=== PATIENT | female | born 1945 | race Two or more races ===

== ENCOUNTER 2019-10-21 05:48 | Inpatient (IN) | payer OTHER, MEDICAID ==
[~2019-10-21] VITALS: Ht 157.5 cm; Wt 98.4 kg
[2019-10-21 06:19] LABS: BASOPHILS % 0.5 % (0.0-2.0); EOSINOPHILS % 4.5 % (0.0-5.0); HEMATOCRIT. 35.5 % (36.0-48.0); HEMOGLOBIN. 11.7 g/dL (12.0-16.0); LYMPHOCYTES % 33.6 % (20.0-50.0); MEAN CORPUSCULAR HEMOGLOBIN 26.6 pg (28.0-32.0); MEAN CORPUSCULAR VOLUME 80.9 fL (81.0-99.0); MEAN PLATELET VOLUME 8.7 fl (7.4-10.4); MONOCYTES % 5.5 % (2.0-8.0); NEUTROPHILS % 55.9 % (40.0-76.0); PLATELET 223 x1000/uL (130-400); RED BLOOD CELL COUNT 4.39 mill/uL (4.2-5.4)
[2019-10-21 06:27] LABS: CHLORIDE 110 mEq/L (98-107)
[2019-10-21] MEDS ORDERED: FUROSEMIDE 40MG/4ML VIAL IV ONE (06:45)
[2019-10-21] MEDS ORDERED: NITROGLYCERIN OINT 1GM/INCH UDPKT TD ONE (06:45)
[2019-10-21] MEDS ORDERED: ASPIRIN 325MG EC TABLET PO NR (07:15)
[2019-10-21] MEDS ORDERED: CLONIDINE 0.1MG TABLET PO PRN (11:45)
[2019-10-21] MEDS ORDERED: ACETAMINOPHEN 650MG SUPP PR PRN (11:45)
[2019-10-21] MEDS ORDERED: IPRATROPIUM/ALBUTEROL 0.5-3(2.5)MG/3ML NEB NEB PRN (11:45)
[2019-10-21] MEDS ORDERED: DEXTROSE 50% WATER 50ML SYRINGE IV PRN (11:45)
[2019-10-21] MEDS ORDERED: GUAIFENESIN 200MG/10ML SUGAR FREE UDC PO PRN (11:45)
[2019-10-21] MEDS ORDERED: LORAZEPAM 0.5MG TABLET PO PRN (11:45)
[2019-10-21] MEDS ORDERED: HYDROCODONE/ACETAMINOPHEN 5/325MG TABLET PO PRN (11:45)
[2019-10-21] MEDS ORDERED: MAGNESIUM/ALUMINUM HYDROXIDE/SIMETHICONE 30ML UDC PO PRN (11:45)
[2019-10-21] MEDS ORDERED: ACETAMINOPHEN 325MG TABLET PO PRN (11:45)
[2019-10-21] MEDS ORDERED: HYDRALAZINE 20MG/ML VIAL IV PRN (11:45)
[2019-10-21] MEDS ORDERED: DIPHENHYDRAMINE 50MG/ML VIAL IV PRN (11:45)
[2019-10-21] MEDS ORDERED: ONDANSETRON HCL 4MG/2ML INJ IV PRN (11:45)
[2019-10-21] MEDS ORDERED: DOCUSATE SODIUM 100MG CAPSULE PO PRN (11:45)
[2019-10-21] MEDS ORDERED: NA PHOS,M-B/NA PHOS,DI-BA ENEMA 118ML PR PRN (11:45)
[2019-10-21] MEDS ORDERED: HYDRALAZINE 20MG/ML VIAL IV SCH (12:15)
[2019-10-21] MEDS: ASPIRIN 81MG EC TABLET PO SCH (12:19)
[2019-10-21] MEDS: FUROSEMIDE 40MG/4ML VIAL IV SCH (12:52)
[2019-10-21 12:56] LABS: BG BASE EXCESS -1.2 mmol/L (-2.0-2.0); BG BILEVEL POS AIRWAY PRESSURE 15/5; BG CARBOXYHEMOGLOBIN 0.3 % (0.5-1.5); BG DEOXYHEMOGLOBIN 0.6 % (0.0-5.0); BG FRACTION INSPIRED OXYGEN 100; BG HCO3 ACT 24.2 mmol/L (22.0-26.0); BG METHEMOGLOBIN 0.3 % (0.0-1.5); BG OXYGEN SATURATION 99.4 % (92.0-98.5); BG OXYHEMOGLOBIN 98.8 % (94.0-97.0); BG PCO2 43.5 mmHg (35.0-45.0); BG PH 7.364 (7.350-7.450); BG PO2 408.9 mmHg (75.0-100.0); BG SAMPLE SITE RIGHT RADIAL; BG TOTAL HEMOGLOBIN 10.8 g/dL (12.0-18.0); BG VENT MODE MASK - BIPAP; BG VENT RATE 14 set
[2019-10-21] MEDS: AMLODIPINE 5MG TABLET PO SCH (12:57)
[2019-10-21] MEDS: INSULIN LISPRO 100 UNITS/ML SUBCUT SCH ×3 (12:57→21:00)
[2019-10-21] MEDS: BLOOD SUGAR DIAGNOSTIC STRIP TEST SCH ×4 (12:57→21:00)
[2019-10-21] MEDS ORDERED: CEFTRIAXONE 1 G PREMIX 50 ML IV SCH (13:00)
[2019-10-21] MEDS ORDERED: AZITHROMYCIN 500 MG in DEXT 5% WATER 250 ML IV SCH (13:00)
[2019-10-21] MEDS ORDERED: NITROGLYCERIN OINT 1GM/INCH UDPKT TD NR (18:32)
[2019-10-21] MEDS ORDERED: CARVEDILOL 6.25 MG TABLET PO SCH (18:33)
[2019-10-21 21:49] LABS: CREATINE KINASE MB FRACTION 9.1 ng/mL (0.5-3.6)
[2019-10-21] MEDS ORDERED: ASPIRIN 81MG TABLET PO SCH (23:00)
[2019-10-21 23:56] LABS: PROTHROMBIN TIME 10.8 sec (9.6-11.0)
[2019-10-22] VITALS (7 sets, daily range): BP systolic 124–165; BP diastolic 45–70
[2019-10-22] MEDS ORDERED: IPRATROPIUM/ALBUTEROL 0.5-3(2.5)MG/3ML NEB NEB SCH
[2019-10-22 00:04] LABS: CREATINE KINASE MB FRACTION 7.7 ng/mL (0.5-3.6)
[2019-10-22] MEDS: NITROGLYCERIN OINT 1GM/INCH UDPKT TD SCH ×4 (00:45→20:23)
[2019-10-22] MEDS: FAMOTIDINE 20MG TABLET PO SCH ×2 (00:45→20:23)
[2019-10-22] MEDS ORDERED: ENOXAPARIN 100MG/ML SYR SUBCUT SCH (01:00)
[2019-10-22] MEDS: ENOXAPARIN 100MG/ML SYR SUBCUT SCH ×2 (02:51→16:55)
[2019-10-22] MEDS ORDERED: INSU100V3 SUBCUT ×2 (03:40)
[2019-10-22] MEDS ORDERED: NPH,100V SQ ×2 (03:40)
[2019-10-22] MEDS: BLOOD SUGAR DIAGNOSTIC STRIP TEST SCH ×4 (06:28→20:24)
[2019-10-22 08:02] LABS: CLARITY URINE CLOUDY (CLEAR); COLOR URINE YELLOW (YELLOW); KETONES URINE NEGATIVE (NEGATIVE); LEUKOCYTE ESTERASE URINE 2+ (NEGATIVE); NITRITE URINE NEGATIVE (NEGATIVE); OCCULT BLOOD URINE NEGATIVE (NEGATIVE); PROTEIN URINE 3+ (NEGATIVE); SPECIFIC GRAVITY URINE 1.024 (1.005-1.030)
[2019-10-22] MEDS ORDERED: LOSARTAN POTASSIUM 25 MG TABLET PO SCH (09:00)
[2019-10-22] MEDS: INSULIN LISPRO 100 UNITS/ML SUBCUT SCH ×4 (09:42→20:43)
[2019-10-22] MEDS: FUROSEMIDE 40MG/4ML VIAL IV SCH (09:45)
[2019-10-22] MEDS: CARVEDILOL 6.25 MG TABLET PO SCH ×2 (09:46→20:23)
[2019-10-22] MEDS: AMLODIPINE 5MG TABLET PO SCH (09:47)
[2019-10-22] MEDS: ASPIRIN 81MG EC TABLET PO SCH (09:47)
[2019-10-22 10:21] LABS: BASOPHILS % 1.1 % (0.0-2.0); EOSINOPHILS % 4.4 % (0.0-5.0); HEMOGLOBIN. 10.6 g/dL (12.0-16.0); LYMPHOCYTES % 22.4 % (20.0-50.0); MEAN CORPUSCULAR HEMOGLOBIN 26.8 pg (28.0-32.0); MEAN CORPUSCULAR VOLUME 80.7 fL (81.0-99.0); MEAN PLATELET VOLUME 9.2 fl (7.4-10.4); MONOCYTES % 6.7 % (2.0-8.0); NEUTROPHILS % 65.4 % (40.0-76.0); PLATELET 219 x1000/uL (130-400); RED BLOOD CELL COUNT 3.97 mill/uL (4.2-5.4); RED CELL DISTRIBUTION WIDTH 15.9 % (11.6-14.6)
[2019-10-22 10:28] LABS: PROTHROMBIN TIME 11.2 sec (9.6-11.0)
[2019-10-22 10:43] LABS: CHLORIDE 108 mEq/L (98-107)
[2019-10-22 10:57] LABS: LDL CHOLESTEROL 199 mg/dL (5-100)
[2019-10-22 10:58] LABS: HDL CHOLESTEROL 30 mg/dL (40-59)
[2019-10-22 10:59] LABS: T4 FREE 1.38 ng/dL (0.76-1.46)
[2019-10-22 11:37] LABS: *BARBITURATES SCREEN URINE NEGATIVE (NEGATIVE); *BENZODIAZEPINES SCREEN URINE NEGATIVE (NEGATIVE); *COCAINE SCREEN URINE NEGATIVE (NEGATIVE); OPIATES URINE SCREEN NEGATIVE (NEGATIVE)
[2019-10-22 11:38] LABS: CANNABINOID URINE SCREEN NEGATIVE (NEGATIVE)
[2019-10-22 11:47] LABS: METHADONE URINE SCREEN NEGATIVE (NEGATIVE)
[2019-10-22 11:49] LABS: *AMPHETAMINES SCREEN URINE NEGATIVE (NEGATIVE)
[2019-10-22 11:59] LABS: PHENCYCLIDINE URINE SCREEN NEGATIVE (NEGATIVE)
[2019-10-22] MEDS ORDERED: CEFTRIAXONE 1 G PREMIX 50 ML IV SCH (13:00)
[2019-10-22] MEDS ORDERED: AZITHROMYCIN 500 MG in DEXT 5% WATER 250 ML IV SCH (15:00)
[2019-10-22] MEDS: CEFTRIAXONE 1 G PREMIX 50 ML IV SCH (16:46)
[2019-10-22] MEDS: ATORVASTATIN CALCIUM 20MG TABLET PO SCH (20:23)
[2019-10-22] MEDS: LOSARTAN POTASSIUM 25 MG TABLET PO SCH (20:23)
[2019-10-23] VITALS (7 sets, daily range): BP systolic 123–174; BP diastolic 45–68
[2019-10-23] MEDS: ENOXAPARIN 100MG/ML SYR SUBCUT SCH ×2 (03:00→14:01)
[2019-10-23] MEDS: BLOOD SUGAR DIAGNOSTIC STRIP TEST SCH ×4 (06:02→20:54)
[2019-10-23] MEDS: NITROGLYCERIN OINT 1GM/INCH UDPKT TD SCH ×3 (06:02→20:59)
[2019-10-23] MEDS: CARVEDILOL 6.25 MG TABLET PO SCH ×3 (09:00→20:54)
[2019-10-23] MEDS: INSULIN LISPRO 100 UNITS/ML SUBCUT SCH ×4 (09:09→21:35)
[2019-10-23] MEDS: FUROSEMIDE 40MG/4ML VIAL IV SCH (09:09)
[2019-10-23] MEDS: ASPIRIN 81MG EC TABLET PO SCH (09:10)
[2019-10-23] MEDS: LOSARTAN POTASSIUM 25 MG TABLET PO SCH ×2 (09:11→20:54)
[2019-10-23] MEDS: AMLODIPINE 5MG TABLET PO SCH (09:11)
[2019-10-23 11:23] LABS: BASOPHILS % 0.8 % (0.0-2.0); HEMATOCRIT. 32.5 % (36.0-48.0); HEMOGLOBIN. 10.7 g/dL (12.0-16.0); LYMPHOCYTES % 23.2 % (20.0-50.0); MEAN CORPUSCULAR HEMOGLOBIN 26.7 pg (28.0-32.0); MEAN CORPUSCULAR VOLUME 80.7 fL (81.0-99.0); MEAN PLATELET VOLUME 8.6 fl (7.4-10.4); MONOCYTES % 6.2 % (2.0-8.0); NEUTROPHILS % 64.8 % (40.0-76.0); PLATELET 216 x1000/uL (130-400); RED BLOOD CELL COUNT 4.03 mill/uL (4.2-5.4); RED CELL DISTRIBUTION WIDTH 15.6 % (11.6-14.6)
[2019-10-23 11:50] LABS: BG BASE EXCESS 1.4 mmol/L (-2.0-2.0); BG CARBOXYHEMOGLOBIN 0.3 % (0.5-1.5); BG DEOXYHEMOGLOBIN 7.1 % (0.0-5.0); BG HCO3 ACT 26.6 mmol/L (22.0-26.0); BG METHEMOGLOBIN 0.3 % (0.0-1.5); BG OXYGEN SATURATION 92.9 % (92.0-98.5); BG OXYHEMOGLOBIN 92.3 % (94.0-97.0); BG PCO2 44.2 mmHg (35.0-45.0); BG PH 7.397 (7.350-7.450); BG PO2 65.4 mmHg (75.0-100.0); BG SAMPLE SITE RIGHT RADIAL; BG TOTAL HEMOGLOBIN 11.3 g/dL (12.0-18.0); BG VENT MODE ROOM AIR
[2019-10-23] MEDS: CEFTRIAXONE 1 G PREMIX 50 ML IV SCH (16:21)
[2019-10-23] MEDS: ALBUTEROL 6.7GM HFA INHALER ORI SCH ×2 (18:00→20:59)
[2019-10-23] MEDS: ATORVASTATIN CALCIUM 20MG TABLET PO SCH (20:54)
[2019-10-23] MEDS: AZITHROMYCIN 500 MG in DEXT 5% WATER 250 ML IV SCH (21:31)
[2019-10-23] MEDS: FAMOTIDINE 20MG TABLET PO SCH (21:34)
[2019-10-24] VITALS: BP 146/57
[2019-10-24 04:00] VITALS: BP 117/57
[2019-10-24] MEDS: NITROGLYCERIN OINT 1GM/INCH UDPKT TD SCH ×3 (05:41→23:29)
[2019-10-24] MEDS: ALBUTEROL 6.7GM HFA INHALER ORI SCH ×4 (05:41→23:30)
[2019-10-24] MEDS: BLOOD SUGAR DIAGNOSTIC STRIP TEST SCH ×4 (05:42→21:15)
[2019-10-24] MEDS: ENOXAPARIN 100MG/ML SYR SUBCUT SCH ×2 (05:42→18:13)
[2019-10-24 08:00] VITALS: BP 128/53
[2019-10-24] MEDS: CARVEDILOL 6.25 MG TABLET PO SCH ×2 (09:00→21:00)
[2019-10-24] MEDS ORDERED: AMLODIPINE 5MG TABLET PO SCH (09:00)
[2019-10-24] MEDS: ASPIRIN 81MG EC TABLET PO SCH (09:01)
[2019-10-24] MEDS: FUROSEMIDE 40MG/4ML VIAL IV SCH (09:01)
[2019-10-24] MEDS: LOSARTAN POTASSIUM 25 MG TABLET PO SCH (09:02)
[2019-10-24] MEDS: INSULIN LISPRO 100 UNITS/ML SUBCUT SCH ×4 (09:07→20:59)
[2019-10-24 12:00] VITALS: BP 153/63
[2019-10-24 16:00] VITALS: BP 157/67
[2019-10-24] MEDS: CEFTRIAXONE 1 G PREMIX 50 ML IV SCH (18:12)
[2019-10-24 20:00] VITALS: BP 149/49
[2019-10-24] MEDS: ATORVASTATIN CALCIUM 20MG TABLET PO SCH (20:59)
[2019-10-24] MEDS: FAMOTIDINE 20MG TABLET PO SCH (20:59)
[2019-10-24] MEDS: AZITHROMYCIN 500 MG in DEXT 5% WATER 250 ML IV SCH (20:59)
[2019-10-24] MEDS: LOSARTAN POTASSIUM 50 MG TABLET PO SCH (21:00)
[2019-10-25] VITALS: BP 166/82
[2019-10-25] MEDS: NITROGLYCERIN OINT 1GM/INCH UDPKT TD SCH ×3 (06:04→22:44)
[2019-10-25] MEDS: ENOXAPARIN 100MG/ML SYR SUBCUT SCH ×2 (06:05→18:00)
[2019-10-25] MEDS: BLOOD SUGAR DIAGNOSTIC STRIP TEST SCH ×4 (06:05→20:58)
[2019-10-25 08:00] VITALS: BP 164/66
[2019-10-25] MEDS: INSULIN LISPRO 100 UNITS/ML SUBCUT SCH ×4 (08:46→21:17)
[2019-10-25] MEDS: ASPIRIN 81MG EC TABLET PO SCH (09:25)
[2019-10-25] MEDS: LOSARTAN POTASSIUM 50 MG TABLET PO SCH ×2 (09:25→21:14)
[2019-10-25] MEDS: AZITHROMYCIN 250 MG TABLET PO SCH (09:25)
[2019-10-25] MEDS: AMLODIPINE 10MG TABLET PO SCH (09:26)
[2019-10-25] MEDS: CARVEDILOL 6.25 MG TABLET PO SCH ×2 (09:26→21:14)
[2019-10-25] MEDS: FUROSEMIDE 40MG/4ML VIAL IV SCH (09:26)
[2019-10-25 12:00] VITALS: BP 135/73
[2019-10-25 16:00] VITALS: BP 141/53
[2019-10-25] MEDS: CEFTRIAXONE 1 G PREMIX 50 ML IV SCH (19:06)
[2019-10-25] MEDS: ALBUTEROL 6.7GM HFA INHALER ORI SCH ×2 (19:26→19:28)
[2019-10-25 20:00] VITALS: BP 126/46
[2019-10-25] MEDS: FAMOTIDINE 20MG TABLET PO SCH (21:13)
[2019-10-25] MEDS: ATORVASTATIN CALCIUM 20MG TABLET PO SCH (21:14)
[2019-10-26] VITALS: BP 150/64
[2019-10-26] MEDS: ALBUTEROL 6.7GM HFA INHALER ORI SCH ×4 (00:44→18:26)
[2019-10-26 04:00] VITALS: BP 135/49
[2019-10-26] MEDS: NITROGLYCERIN OINT 1GM/INCH UDPKT TD SCH ×3 (05:43→21:20)
[2019-10-26] MEDS: ENOXAPARIN 100MG/ML SYR SUBCUT SCH (05:45)
[2019-10-26 06:07] LABS: EOSINOPHILS % 5.1 % (0.0-5.0); HEMOGLOBIN. 9.7 g/dL (12.0-16.0); LYMPHOCYTES % 32.7 % (20.0-50.0); MEAN CORPUSCULAR HEMOGLOBIN 26.7 pg (28.0-32.0); MEAN PLATELET VOLUME 9.2 fl (7.4-10.4); NEUTROPHILS % 52.2 % (40.0-76.0); PLATELET 210 x1000/uL (130-400); RED BLOOD CELL COUNT 3.62 mill/uL (4.2-5.4); RED CELL DISTRIBUTION WIDTH 15.5 % (11.6-14.6)
[2019-10-26] MEDS: BLOOD SUGAR DIAGNOSTIC STRIP TEST SCH ×4 (06:28→21:20)
[2019-10-26 06:49] LABS: VITAMIN B12 SERUM 567 pg/mL (211-911)
[2019-10-26 08:00] VITALS: BP 131/41
[2019-10-26] MEDS: LOSARTAN POTASSIUM 50 MG TABLET PO SCH ×2 (08:35→21:20)
[2019-10-26] MEDS: AZITHROMYCIN 250 MG TABLET PO SCH (08:35)
[2019-10-26] MEDS: FUROSEMIDE 40MG/4ML VIAL IV SCH (08:35)
[2019-10-26] MEDS: CARVEDILOL 6.25 MG TABLET PO SCH ×2 (08:35→21:20)
[2019-10-26] MEDS: AMLODIPINE 10MG TABLET PO SCH (08:35)
[2019-10-26] MEDS: ASPIRIN 81MG EC TABLET PO SCH (08:36)
[2019-10-26] MEDS: INSULIN LISPRO 100 UNITS/ML SUBCUT SCH ×4 (08:38→21:25)
[2019-10-26] MEDS ORDERED: REGADENOSON 0.4 MG/5 ML IV SCH (11:30)
[2019-10-26 12:00] VITALS: BP 134/56
[2019-10-26 15:59] VITALS: BP 125/40
[2019-10-26] MEDS ORDERED: ALBU90AE INH (16:20)
[2019-10-26] MEDS ORDERED: AMLO10TA4 MT (16:20)
[2019-10-26] MEDS ORDERED: LANC-867 TP (16:20)
[2019-10-26] MEDS ORDERED: FAMO-135 PO (16:20)
[2019-10-26] MEDS ORDERED: ASPI-1497 MT (16:20)
[2019-10-26] MEDS ORDERED: AMOX-424 MT (16:20)
[2019-10-26] MEDS ORDERED: FURO-151 MT (16:20)
[2019-10-26] MEDS ORDERED: COR6 MT (16:20)
[2019-10-26] MEDS ORDERED: INSLIS SUBCUT (16:20)
[2019-10-26] MEDS ORDERED: LOSA50TA3 PO (16:20)
[2019-10-26] MEDS ORDERED: ATOR20TA MT (16:20)
[2019-10-26] MEDS ORDERED: BLOO1KIT74 TP (16:20)
[2019-10-26] MEDS ORDERED: BLOO-1465 MT (16:20)
[2019-10-26] MEDS: AMPICILLIN SOD/SULBACTAM NA 3 G in SODIUM CHLORIDE 0.9% 100 ML IV SCH (17:08)
[2019-10-26] MEDS ORDERED: ENOXAPARIN 100MG/ML SYR SUBCUT SCH (18:00)
[2019-10-26 20:00] VITALS: BP 157/56
[2019-10-26] MEDS: ATORVASTATIN CALCIUM 20MG TABLET PO SCH (21:20)
[2019-10-26] MEDS: ENOXAPARIN 30MG/0.3ML SYR SUBCUT SCH (21:20)
[2019-10-26] MEDS: FAMOTIDINE 20MG TABLET PO SCH (21:20)
[2019-10-27] VITALS: BP 155/59
[2019-10-27] MEDS: ALBUTEROL 6.7GM HFA INHALER ORI SCH
[2019-10-27] MEDS: AMPICILLIN SOD/SULBACTAM NA 3 G in SODIUM CHLORIDE 0.9% 100 ML IV SCH ×4 (00:02→17:00)
[2019-10-27] MEDS: DEXT 5%/0.45% NACL 1000ML 1,000 ML IV SCH ×2 (00:03→16:40)
[2019-10-27 04:00] VITALS: BP 128/47
[2019-10-27] MEDS: NITROGLYCERIN OINT 1GM/INCH UDPKT TD SCH ×2 (05:19→14:52)
[2019-10-27 06:47] LABS: HEMATOCRIT 30.2 % (36.0-48.0); HEMOGLOBIN 10.2 g/dL (12.0-16.0); MEAN CORPUSCULAR VOLUME 80.3 fL (81.0-99.0); PLATELET 217 x1000/uL (130-400); RED BLOOD CELL COUNT 3.75 mill/uL (4.2-5.4); RED CELL DISTRIBUTION WIDTH 15.7 % (11.6-14.6)
[2019-10-27] MEDS: BLOOD SUGAR DIAGNOSTIC STRIP TEST SCH ×3 (07:01→16:45)
[2019-10-27] MEDS: INSULIN LISPRO 100 UNITS/ML SUBCUT SCH ×3 (07:50→17:47)
[2019-10-27 08:00] VITALS: BP 101/60
[2019-10-27] MEDS: ASPIRIN 81MG EC TABLET PO SCH (08:44)
[2019-10-27] MEDS: AMLODIPINE 10MG TABLET PO SCH (08:44)
[2019-10-27] MEDS: CARVEDILOL 6.25 MG TABLET PO SCH (08:44)
[2019-10-27] MEDS: LOSARTAN POTASSIUM 50 MG TABLET PO SCH (08:44)
[2019-10-27] MEDS: FUROSEMIDE 40MG/4ML VIAL IV SCH (08:44)
[2019-10-27] MEDS: ENOXAPARIN 30MG/0.3ML SYR SUBCUT SCH (08:45)
[2019-10-27] MEDS ORDERED: REGADENOSON 0.4 MG/5 ML IV ONE (08:50)
[2019-10-27 12:00] VITALS: BP 131/54
[2019-10-27 15:29] VITALS: BP 148/63
[2019-10-27 16:00] VITALS: BP 148/63
== END 2019-10-27 18:45 | disposition home or self-care (01) | DRG 291 ==
LOC: ER 06:03 → 7WST 07:51 → EDBEDREQTM 07:53 → EDBEDREQ 07:53 → EDBEDREQSVC 08:52 → SUPCPDRO 11:37 → EDBEDREQ 18:34 → EDBEDREQSVC 18:34 → ENRESERV 22:21 → 6WST 10-25 02:18
PROVIDERS: ADMIT Internal Medicine; ATTEND Internal Medicine
PROC: 5A09357 Assistance with Respiratory Ventilation, Less than 24 Consecutive Hours, Continuous Positive Airway Pressure (ICD-10-PCS; principal; 2019-10-21)
DX: I11.0 Hypertensive heart disease with heart failure (principal); J18.9 Pneumonia, unspecified organism; I16.9 Hypertensive crisis, unspecified; N39.0 Urinary tract infection, site not specified; L03.119 Cellulitis of unspecified part of limb; R78.81 Bacteremia; I50.43 Acute on chronic combined systolic (congestive) and diastolic (congestive) heart failure; E78.5 Hyperlipidemia, unspecified; R09.02 Hypoxemia; D50.9 Iron deficiency anemia, unspecified; E66.01 Morbid (severe) obesity due to excess calories; B95.2 Enterococcus as the cause of diseases classified elsewhere; R06.03 Acute respiratory distress; B95.5 Unspecified streptococcus as the cause of diseases classified elsewhere; I27.20 Pulmonary hypertension, unspecified; I25.10 Atherosclerotic heart disease of native coronary artery without angina pectoris; Z20.828 Contact with and (suspected) exposure to other viral communicable diseases; E11.9 Type 2 diabetes mellitus without complications; Z68.39 Body mass index [BMI] 39.0-39.9, adult
CPT/HCPCS: 36415; 36600; 71045; 71250; 78452; 78580; 80048; 80053; 80061; 80305; 81003; 82375; 82550; 82553; 82607; 82805; 82962; 83036; 83540; 83550; 83880; 84145; 84439; 84443; 84484; 85025; 85027; 85379; 87077; 87186; 87635; 93005; 93017; 93306; 93970; 94660; 96374; 99291; A9500; J0295; J0360; J0456; J0696; J1650; J1815; J1940; J2785; J7050; J7060; U0003-CS

== ENCOUNTER 2019-10-28 03:09 | Inpatient (IN) | payer OTHER, MEDICAID ==
[~2019-10-28] VITALS: Ht 162.6 cm; Wt 102.1 kg
[~2019-10-28 03:09] MED LIST: ALBU90AE INH; AMLO10TA4 MT; AMOX-424 MT; ASPI-1497 MT; ATOR20TA MT; BLOO-1465 MT; BLOO1KIT74 TP; COR6 MT; FAMO-135 PO; FURO-151 MT; INSLIS SUBCUT; LANC-867 TP; LOSA50TA3 PO
[2019-10-28] MEDS ORDERED: SODIUM CHLORIDE 0.9% 1,000 ML IV ONE (04:03)
[2019-10-28] MEDS ORDERED: ONDANSETRON HCL 4MG/2ML INJ IV STA (04:03)
[2019-10-28] MEDS ORDERED: MORPHINE SULFATE 4 MG/ML CPJ (NOT FOR IM USE) IV STA (04:03)
[2019-10-28] MEDS ORDERED: PROPOFOL 10MG/ML 100ML 100 ML IV ONE (04:15)
[2019-10-28 04:32] LABS: BASOPHILS % 0.8 % (0.0-2.0); EOSINOPHILS % 1.6 % (0.0-5.0); HEMATOCRIT. 33.1 % (36.0-48.0); HEMOGLOBIN. 10.8 g/dL (12.0-16.0); LYMPHOCYTES % 16.7 % (20.0-50.0); MEAN CORPUSCULAR HEMOGLOBIN 27.2 pg (28.0-32.0); MEAN CORPUSCULAR VOLUME 83.4 fL (81.0-99.0); MEAN PLATELET VOLUME 9.5 fl (7.4-10.4); MONOCYTES % 5.3 % (2.0-8.0); NEUTROPHILS % 75.6 % (40.0-76.0); PLATELET 240 x1000/uL (130-400); RED BLOOD CELL COUNT 3.97 mill/uL (4.2-5.4); RED CELL DISTRIBUTION WIDTH 16.2 % (11.6-14.6)
[2019-10-28 04:43] LABS: BG BASE EXCESS -6.9 mmol/L (-2.0-2.0); BG CARBOXYHEMOGLOBIN 0.3 % (0.5-1.5); BG DEOXYHEMOGLOBIN 0.8 % (0.0-5.0); BG FRACTION INSPIRED OXYGEN 100; BG HCO3 ACT 19.6 mmol/L (22.0-26.0); BG METHEMOGLOBIN 0.3 % (0.0-1.5); BG OXYGEN SATURATION 99.2 % (92.0-98.5); BG OXYHEMOGLOBIN 98.6 % (94.0-97.0); BG PCO2 42.9 mmHg (35.0-45.0); BG PH 7.277 (7.350-7.450); BG PO2 267.8 mmHg (75.0-100.0); BG SAMPLE SITE RIGHT BRACHIAL; BG TIDAL VOLUME(mL) 500 mL; BG TOTAL HEMOGLOBIN 10.7 g/dL (12.0-18.0); BG VENT MODE VENT - A/C; BG VENT RATE 14 set
[2019-10-28 04:49] LABS: CHLORIDE 107 mEq/L (98-107)
[2019-10-28] MEDS ORDERED: NOREPINEPHRINE 4 MG in DEXT 5% WATER 250 ML IV STA (04:51)
[2019-10-28] MEDS ORDERED: NOREPINEPHRINE 4MG/250ML PMX 250 ML IV ONE (05:07)
[2019-10-28] MEDS ORDERED: NOREPINEPHRINE 4MG/250ML PMX 250 ML IV PRN (05:15)
[2019-10-28] MEDS ORDERED: LORAZEPAM 2MG/ML CPJ IV PRN (08:15)
[2019-10-28] MEDS ORDERED: LEVETIRACETAM 500MG PREMIX 100 ML IV SCH ×2 (08:45→21:00)
[2019-10-28] MEDS ORDERED: VANCOMYCIN 1 G PREMIX 200 ML IV SCH (09:00)
[2019-10-28] MEDS ORDERED: ENOXAPARIN 40MG/0.4ML SYR SUBCUT SCH (09:00)
[2019-10-28] MEDS ORDERED: PIPERACILLIN/TAZ 3.375G PREMIX 50 ML IV SCH ×2 (09:00→20:00)
[2019-10-28] MEDS ORDERED: ASPIRIN 81MG EC TABLET PO SCH (09:00)
[2019-10-28] MEDS: FUROSEMIDE 40MG/4ML VIAL IV SCH ×2 (09:11→20:06)
[2019-10-28 09:13] LABS: BG BASE EXCESS -5.2 mmol/L (-2.0-2.0); BG CARBOXYHEMOGLOBIN 0.3 % (0.5-1.5); BG DEOXYHEMOGLOBIN 0.3 % (0.0-5.0); BG FRACTION INSPIRED OXYGEN 100; BG HCO3 ACT 19.1 mmol/L (22.0-26.0); BG METHEMOGLOBIN 0.2 % (0.0-1.5); BG OXYGEN SATURATION 99.7 % (92.0-98.5); BG OXYHEMOGLOBIN 99.2 % (94.0-97.0); BG PO2 390.4 mmHg (75.0-100.0); BG SAMPLE SITE RIGHT RADIAL; BG TIDAL VOLUME(mL) 500 mL; BG TOTAL HEMOGLOBIN 11.3 g/dL (12.0-18.0); BG VENT MODE VENT - A/C; BG VENT RATE 14 set
[2019-10-28 09:40] LABS: HEMATOCRIT. 31.5 % (36.0-48.0); HEMOGLOBIN. 10.3 g/dL (12.0-16.0); MEAN CORPUSCULAR HEMOGLOBIN 26.5 pg (28.0-32.0); MEAN CORPUSCULAR VOLUME 80.6 fL (81.0-99.0); MEAN PLATELET VOLUME 9.3 fl (7.4-10.4); PLATELET 258 x1000/uL (130-400); RED CELL DISTRIBUTION WIDTH 15.6 % (11.6-14.6)
[2019-10-28] MEDS ORDERED: MIDAZOLAM HCL 50 MG in DEXTROSE 5% WATER 40 ML IV PRN (11:00)
[2019-10-28 11:43] LABS: HEMATOCRIT. 32.3 % (36.0-48.0); HEMOGLOBIN. 10.6 g/dL (12.0-16.0); MEAN CORPUSCULAR HEMOGLOBIN 26.6 pg (28.0-32.0); MEAN CORPUSCULAR VOLUME 81.1 fL (81.0-99.0); RED BLOOD CELL COUNT 3.99 mill/uL (4.2-5.4); RED CELL DISTRIBUTION WIDTH 15.8 % (11.6-14.6)
[2019-10-28 12:02] LABS: CHLORIDE 107 mEq/L (98-107)
[2019-10-28] MEDS ORDERED: LORAZEPAM 2MG/ML CPJ ONE (12:09)
[2019-10-28 12:19] LABS: PLATELET ESTIMATE NORMAL
[2019-10-28 12:21] LABS: BG BASE EXCESS -2.9 mmol/L (-2.0-2.0); BG CARBOXYHEMOGLOBIN 0.2 % (0.5-1.5); BG DEOXYHEMOGLOBIN 0.9 % (0.0-5.0); BG FRACTION INSPIRED OXYGEN 100; BG HCO3 ACT 21.1 mmol/L (22.0-26.0); BG METHEMOGLOBIN 0.2 % (0.0-1.5); BG OXYGEN SATURATION 99.1 % (92.0-98.5); BG OXYHEMOGLOBIN 98.7 % (94.0-97.0); BG PCO2 33.6 mmHg (35.0-45.0); BG PH 7.416 (7.350-7.450); BG PO2 375.6 mmHg (75.0-100.0); BG SAMPLE SITE RIGHT RADIAL; BG TIDAL VOLUME(mL) 550 mL; BG TOTAL HEMOGLOBIN 10.1 g/dL (12.0-18.0); BG VENT MODE VENT - A/C; BG VENT RATE 20 set
[2019-10-28 12:35] LABS: PLATELET ESTIMATE NORMAL
[2019-10-28] MEDS ORDERED: SODIUM BICARBONATE 4% (2.4MEQ) 5ML VIAL IV ONE (14:20)
[2019-10-28] MEDS ORDERED: LIDOCAINE HCL 1% 20ML VIAL (Pyxis) INJ ONE (14:21)
[2019-10-28] MEDS: PHENYTOIN SODIUM 100MG/2ML VIAL IV SCH ×2 (14:39→22:00)
[2019-10-28] MEDS ORDERED: LORAZEPAM 2MG/ML CPJ IV NR (14:45)
[2019-10-28] MEDS ORDERED: DIPHENHYDRAMINE 50MG/ML VIAL IV PRN (15:00)
[2019-10-28] MEDS ORDERED: DEXTROSE 50% WATER 50ML SYRINGE IV PRN (15:00)
[2019-10-28] MEDS ORDERED: ONDANSETRON HCL 4MG/2ML INJ IV PRN (15:00)
[2019-10-28] MEDS ORDERED: ACETAMINOPHEN 650MG SUPP PR PRN (15:00)
[2019-10-28] MEDS: FAMOTIDINE 20MG/2ML VIAL IV SCH (18:37)
[2019-10-28] MEDS: BLOOD SUGAR DIAGNOSTIC STRIP TEST SCH ×2 (19:25→21:53)
[2019-10-28] MEDS ORDERED: INSULIN GLARGINE UD 100 UNITS/ML SYR SUBCUT NR (19:30)
[2019-10-28] MEDS: INSULIN LISPRO 100 UNITS/ML SUBCUT SCH ×2 (20:04→21:00)
[2019-10-28] MEDS: SODIUM CHLORIDE 0.45% 1,000 ML IV SCH (20:27)
[2019-10-28] MEDS: ASPIRIN 81MG TABLET NG SCH (20:47)
[2019-10-28] MEDS: ENOXAPARIN 100MG/ML SYR SUBCUT SCH (21:00)
[2019-10-28 23:57] LABS: CREATINE KINASE MB FRACTION 5.3 ng/mL (0.5-3.6)
[2019-10-29] MEDS: MIDAZOLAM HCL 50 MG in DEXTROSE 5% WATER 40 ML IV PRN (01:24)
[2019-10-29 04:32] LABS: BASOPHILS % 0.6 % (0.0-2.0); EOSINOPHILS % 0.1 % (0.0-5.0); HEMATOCRIT. 25.2 % (36.0-48.0); HEMOGLOBIN. 8.5 g/dL (12.0-16.0); LYMPHOCYTES % 14.2 % (20.0-50.0); MEAN PLATELET VOLUME 9.1 fl (7.4-10.4); MONOCYTES % 7.6 % (2.0-8.0); NEUTROPHILS % 77.5 % (40.0-76.0); PLATELET 159 x1000/uL (130-400); RED BLOOD CELL COUNT 3.15 mill/uL (4.2-5.4); RED CELL DISTRIBUTION WIDTH 16.1 % (11.6-14.6)
[2019-10-29] MEDS ORDERED: PIPERACILLIN/TAZ 3.375G PREMIX 50 ML IV NR (06:00)
[2019-10-29] MEDS: PHENYTOIN SODIUM 100MG/2ML VIAL IV SCH ×3 (06:00→22:00)
[2019-10-29] MEDS: INSULIN LISPRO 100 UNITS/ML SUBCUT SCH ×4 (08:20→21:00)
[2019-10-29] MEDS: BLOOD SUGAR DIAGNOSTIC STRIP TEST SCH ×4 (09:00→21:00)
[2019-10-29] MEDS ORDERED: ENOXAPARIN 30MG/0.3ML SYR SUBCUT SCH (09:00)
[2019-10-29] MEDS: ASPIRIN 81MG TABLET NG SCH (09:00)
[2019-10-29] MEDS: FAMOTIDINE 20MG/2ML VIAL IV SCH (09:00)
[2019-10-29] MEDS: FUROSEMIDE 40MG/4ML VIAL IV SCH ×2 (09:00→17:48)
[2019-10-29] MEDS: ENOXAPARIN 100MG/ML SYR SUBCUT SCH (09:00)
[2019-10-29 09:12] LABS: BG BASE EXCESS 1.4 mmol/L (-2.0-2.0); BG CARBOXYHEMOGLOBIN 0.3 % (0.5-1.5); BG DEOXYHEMOGLOBIN 1.4 % (0.0-5.0); BG FRACTION INSPIRED OXYGEN 60; BG HCO3 ACT 24.5 mmol/L (22.0-26.0); BG METHEMOGLOBIN 0.3 % (0.0-1.5); BG OXYGEN SATURATION 98.6 % (92.0-98.5); BG PCO2 32.6 mmHg (35.0-45.0); BG PH 7.493 (7.350-7.450); BG PO2 133.7 mmHg (75.0-100.0); BG SAMPLE SITE RIGHT RADIAL; BG TIDAL VOLUME(mL) 500 mL; BG TOTAL HEMOGLOBIN 9.6 g/dL (12.0-18.0); BG VENT MODE VENT - A/C; BG VENT RATE 18 set
[2019-10-29] MEDS ORDERED: LEVETIRACETAM 500MG PREMIX 100 ML IV SCH ×2 (10:30→23:00)
[2019-10-29] MEDS ORDERED: INSULIN GLARGINE UD 100 UNITS/ML SYR SUBCUT NR (10:45)
[2019-10-29] MEDS ORDERED: POTASSIUM CHLORIDE INJ 40 MEQ in DEXT 5% WATER 250 ML IV SCH (12:00)
[2019-10-29] MEDS ORDERED: POTASSIUM CHLORIDE 20MEQ/PACKET NG NR (13:00)
[2019-10-29] MEDS ORDERED: PIPERACILLIN/TAZ 3.375G PREMIX 50 ML IV SCH ×2 (14:30→23:45)
[2019-10-29 14:39] LABS: CLARITY URINE TURBID (CLEAR); COLOR URINE YELLOW (YELLOW); KETONES URINE NEGATIVE (NEGATIVE); LEUKOCYTE ESTERASE URINE 1+ (NEGATIVE); NITRITE URINE NEGATIVE (NEGATIVE); OCCULT BLOOD URINE 3+ (NEGATIVE); PH URINE 5.5 (4.5-8.0); PROTEIN URINE 2+ (NEGATIVE); SPECIFIC GRAVITY URINE 1.019 (1.005-1.030); UROBILINOGEN URINE 0.2 E.U./dL (0.2-1.0)
[2019-10-29 14:43] LABS: HEMATOCRIT 27.8 % (36.0-48.0); HEMOGLOBIN 9.1 g/dL (12.0-16.0)
[2019-10-29] MEDS ORDERED: LORAZEPAM 2MG/ML CPJ IV PRN (16:15)
[2019-10-29] MEDS: CARVEDILOL 3.125 MG TABLET PO SCH (18:00)
[2019-10-29] MEDS: ENOXAPARIN 80MG/0.8ML SYR SUBCUT SCH (21:00)
[2019-10-30] VITALS (47 sets, daily range): BP systolic 109–151; BP diastolic 55–114
[2019-10-30] MEDS ORDERED: FENTANYL CITRATE/PF 1,000 MCG in SODIUM CHLORIDE 0.9% 80 ML IV PRN ×4 (02:30)
[2019-10-30] MEDS: SODIUM CHLORIDE 0.45% 1,000 ML IV SCH ×2 (02:31→17:41)
[2019-10-30] MEDS: MIDAZOLAM HCL 50 MG in DEXTROSE 5% WATER 40 ML IV PRN ×3 (02:52→19:16)
[2019-10-30] MEDS ORDERED: VANCOMYCIN 1500MG in DEXTROSE 5% WATER 250ML IV SCH (05:00)
[2019-10-30] MEDS: PHENYTOIN SODIUM 100MG/2ML VIAL IV SCH ×3 (05:23→22:24)
[2019-10-30 05:41] LABS: BASOPHILS % 0.8 % (0.0-2.0); EOSINOPHILS % 0.6 % (0.0-5.0); HEMATOCRIT. 26.8 % (36.0-48.0); LYMPHOCYTES % 21.2 % (20.0-50.0); MEAN CORPUSCULAR HEMOGLOBIN 26.9 pg (28.0-32.0); MEAN PLATELET VOLUME 9.4 fl (7.4-10.4); MONOCYTES % 7.9 % (2.0-8.0); NEUTROPHILS % 69.5 % (40.0-76.0); PLATELET 168 x1000/uL (130-400); RED BLOOD CELL COUNT 3.35 mill/uL (4.2-5.4); RED CELL DISTRIBUTION WIDTH 15.8 % (11.6-14.6)
[2019-10-30] MEDS ORDERED: PIPERACILLIN/TAZOBACTAM 2.25 G in DEXTROSE 5% WATER 50 ML IV SCH (08:00)
[2019-10-30] MEDS: BLOOD SUGAR DIAGNOSTIC STRIP TEST SCH ×4 (08:09→21:18)
[2019-10-30] MEDS: ASPIRIN 81MG TABLET NG SCH (08:23)
[2019-10-30] MEDS: FUROSEMIDE 40MG/4ML VIAL IV SCH ×2 (08:23→16:37)
[2019-10-30] MEDS: FAMOTIDINE 20MG/2ML VIAL IV SCH (08:23)
[2019-10-30] MEDS: CARVEDILOL 3.125 MG TABLET PO SCH ×2 (08:24→21:17)
[2019-10-30] MEDS: ENOXAPARIN 80MG/0.8ML SYR SUBCUT SCH ×2 (08:24→21:17)
[2019-10-30] MEDS: INSULIN LISPRO 100 UNITS/ML SUBCUT SCH ×4 (08:25→21:18)
[2019-10-30 09:44] LABS: BG CARBOXYHEMOGLOBIN 0.3 % (0.5-1.5); BG DEOXYHEMOGLOBIN 2.3 % (0.0-5.0); BG FRACTION INSPIRED OXYGEN 40; BG HCO3 ACT 21.1 mmol/L (22.0-26.0); BG METHEMOGLOBIN 0.3 % (0.0-1.5); BG OXYGEN SATURATION 97.7 % (92.0-98.5); BG OXYHEMOGLOBIN 97.1 % (94.0-97.0); BG PH 7.411 (7.350-7.450); BG PO2 109.8 mmHg (75.0-100.0); BG SAMPLE SITE RIGHT RADIAL; BG TIDAL VOLUME(mL) 450 mL; BG TOTAL HEMOGLOBIN 9.9 g/dL (12.0-18.0); BG VENT MODE VENT - A/C; BG VENT RATE 16 set
[2019-10-30] MEDS ORDERED: INSULIN GLARGINE UD 100 UNITS/ML SYR SUBCUT SCH (10:00)
[2019-10-30] MEDS: INSULIN GLARGINE UD 100 UNITS/ML SYR SUBCUT SCH (10:12)
[2019-10-30] MEDS: LEVETIRACETAM 500MG PREMIX 100 ML IV SCH ×2 (12:42→21:16)
[2019-10-30] MEDS: PIPERACILLIN/TAZOBACTAM 3.375 G in DEXT 5% WATER 100 ML IV SCH (17:34)
[2019-10-30] MEDS: VANCOMYCIN 750 MG PREMIX 150 ML IV SCH (22:25)
[2019-10-31] VITALS (45 sets, daily range): BP systolic 113–157; BP diastolic 38–96
[2019-10-31] MEDS: PIPERACILLIN/TAZOBACTAM 3.375 G in DEXT 5% WATER 100 ML IV SCH ×5 (00:14→23:10)
[2019-10-31] MEDS: MIDAZOLAM HCL 50 MG in DEXTROSE 5% WATER 40 ML IV PRN ×3 (03:10→20:29)
[2019-10-31] MEDS: PHENYTOIN SODIUM 100MG/2ML VIAL IV SCH ×3 (05:18→21:46)
[2019-10-31] MEDS: ACETAMINOPHEN 325MG TABLET PO PRN ×2 (05:20→20:12)
[2019-10-31 05:45] LABS: BASOPHILS % 0.6 % (0.0-2.0); EOSINOPHILS % 1.2 % (0.0-5.0); HEMATOCRIT. 27.7 % (36.0-48.0); HEMOGLOBIN. 9.2 g/dL (12.0-16.0); LYMPHOCYTES % 18.3 % (20.0-50.0); MEAN CORPUSCULAR HEMOGLOBIN 27.2 pg (28.0-32.0); MEAN CORPUSCULAR VOLUME 82.1 fL (81.0-99.0); MEAN PLATELET VOLUME 9.8 fl (7.4-10.4); MONOCYTES % 9.7 % (2.0-8.0); NEUTROPHILS % 70.2 % (40.0-76.0); PLATELET 124 x1000/uL (130-400); RED BLOOD CELL COUNT 3.38 mill/uL (4.2-5.4); RED CELL DISTRIBUTION WIDTH 15.7 % (11.6-14.6)
[2019-10-31 08:04] LABS: BG BASE EXCESS -2.2 mmol/L (-2.0-2.0); BG CARBOXYHEMOGLOBIN 0.3 % (0.5-1.5); BG FRACTION INSPIRED OXYGEN 40; BG HCO3 ACT 20.8 mmol/L (22.0-26.0); BG METHEMOGLOBIN 0.2 % (0.0-1.5); BG OXYHEMOGLOBIN 97.5 % (94.0-97.0); BG PCO2 29.4 mmHg (35.0-45.0); BG PH 7.468 (7.350-7.450); BG SAMPLE SITE RIGHT RADIAL; BG TIDAL VOLUME(mL) 450 mL; BG TOTAL HEMOGLOBIN 9.2 g/dL (12.0-18.0); BG VENT MODE VENT - A/C; BG VENT RATE 16 set
[2019-10-31] MEDS: BLOOD SUGAR DIAGNOSTIC STRIP TEST SCH ×4 (08:22→20:13)
[2019-10-31] MEDS: LEVETIRACETAM 500MG PREMIX 100 ML IV SCH ×2 (08:37→20:12)
[2019-10-31] MEDS: CARVEDILOL 3.125 MG TABLET PO SCH ×2 (08:37→20:13)
[2019-10-31] MEDS: ASPIRIN 81MG TABLET NG SCH (08:37)
[2019-10-31] MEDS: FAMOTIDINE 20MG/2ML VIAL IV SCH (08:37)
[2019-10-31] MEDS: ENOXAPARIN 80MG/0.8ML SYR SUBCUT SCH ×2 (08:37→20:13)
[2019-10-31] MEDS: FUROSEMIDE 40MG/4ML VIAL IV SCH ×2 (08:39→17:23)
[2019-10-31] MEDS: INSULIN LISPRO 100 UNITS/ML SUBCUT SCH ×4 (08:39→21:47)
[2019-10-31] MEDS: SODIUM CHLORIDE 0.45% 1,000 ML IV SCH (09:40)
[2019-10-31] MEDS: INSULIN GLARGINE UD 100 UNITS/ML SYR SUBCUT SCH (10:49)
[2019-10-31] MEDS: VANCOMYCIN 750 MG PREMIX 150 ML IV SCH (17:23)
[2019-10-31] MEDS: IPRATROPIUM/ALBUTEROL 0.5-3(2.5)MG/3ML NEB NEB PRN (21:35)
[2019-10-31] MEDS ORDERED: POTASSIUM CHLORIDE 20MEQ/PACKET PO SCH (22:30)
[2019-11-01] VITALS (50 sets, daily range): BP systolic 123–176; BP diastolic 52–122
[2019-11-01] MEDS: MIDAZOLAM HCL 50 MG in DEXTROSE 5% WATER 40 ML IV PRN (03:17)
[2019-11-01] MEDS: SODIUM CHLORIDE 0.45% 1,000 ML IV SCH ×2 (03:17→18:17)
[2019-11-01] MEDS: ACETAMINOPHEN 325MG TABLET PO PRN ×2 (03:50→17:26)
[2019-11-01] MEDS: PHENYTOIN SODIUM 100MG/2ML VIAL IV SCH ×3 (05:14→21:18)
[2019-11-01] MEDS: PIPERACILLIN/TAZOBACTAM 3.375 G in DEXT 5% WATER 100 ML IV SCH ×4 (05:14→23:46)
[2019-11-01 05:38] LABS: EOSINOPHILS % 2.8 % (0.0-5.0); HEMATOCRIT. 27.4 % (36.0-48.0); HEMOGLOBIN. 9.4 g/dL (12.0-16.0); LYMPHOCYTES % 16.6 % (20.0-50.0); MEAN CORPUSCULAR HEMOGLOBIN 27.3 pg (28.0-32.0); MEAN CORPUSCULAR VOLUME 79.8 fL (81.0-99.0); MEAN PLATELET VOLUME 9.8 fl (7.4-10.4); MONOCYTES % 8.3 % (2.0-8.0); NEUTROPHILS % 71.3 % (40.0-76.0); PLATELET 164 x1000/uL (130-400); RED BLOOD CELL COUNT 3.44 mill/uL (4.2-5.4)
[2019-11-01 07:32] LABS: *AMPHETAMINES SCREEN URINE NEGATIVE (NEGATIVE); *BARBITURATES SCREEN URINE NEGATIVE (NEGATIVE); *BENZODIAZEPINES SCREEN URINE PRESUMTIVE POSITIVE (NEGATIVE); *COCAINE SCREEN URINE NEGATIVE (NEGATIVE); METHADONE URINE SCREEN NEGATIVE (NEGATIVE); OPIATES URINE SCREEN NEGATIVE (NEGATIVE)
[2019-11-01 07:33] LABS: CANNABINOID URINE SCREEN NEGATIVE (NEGATIVE); PHENCYCLIDINE URINE SCREEN NEGATIVE (NEGATIVE)
[2019-11-01] MEDS: CARVEDILOL 3.125 MG TABLET PO SCH ×2 (08:20→21:00)
[2019-11-01] MEDS: FAMOTIDINE 20MG/2ML VIAL IV SCH (08:20)
[2019-11-01] MEDS: ASPIRIN 81MG TABLET NG SCH (08:20)
[2019-11-01] MEDS: FUROSEMIDE 40MG/4ML VIAL IV SCH ×2 (08:20→16:51)
[2019-11-01] MEDS: ENOXAPARIN 80MG/0.8ML SYR SUBCUT SCH ×2 (08:21→21:18)
[2019-11-01] MEDS: INSULIN LISPRO 100 UNITS/ML SUBCUT SCH ×3 (08:21→17:33)
[2019-11-01] MEDS: BLOOD SUGAR DIAGNOSTIC STRIP TEST SCH ×4 (08:21→23:46)
[2019-11-01] MEDS: LEVETIRACETAM 500MG PREMIX 100 ML IV SCH (08:23)
[2019-11-01 09:46] LABS: BG BASE EXCESS -1.4 mmol/L (-2.0-2.0); BG CARBOXYHEMOGLOBIN 0.3 % (0.5-1.5); BG DEOXYHEMOGLOBIN 2.9 % (0.0-5.0); BG FRACTION INSPIRED OXYGEN 40; BG HCO3 ACT 22.2 mmol/L (22.0-26.0); BG METHEMOGLOBIN 0.3 % (0.0-1.5); BG OXYGEN SATURATION 97.1 % (92.0-98.5); BG OXYHEMOGLOBIN 96.5 % (94.0-97.0); BG PCO2 33.4 mmHg (35.0-45.0); BG PH 7.441 (7.350-7.450); BG PO2 98.9 mmHg (75.0-100.0); BG SAMPLE SITE RIGHT RADIAL; BG TIDAL VOLUME(mL) 450 mL; BG TOTAL HEMOGLOBIN 10.4 g/dL (12.0-18.0); BG VENT MODE VENT - A/C; BG VENT RATE 16 set
[2019-11-01] MEDS: VANCOMYCIN 750 MG PREMIX 150 ML IV SCH (10:29)
[2019-11-01] MEDS: INSULIN GLARGINE UD 100 UNITS/ML SYR SUBCUT SCH (12:22)
[2019-11-01] MEDS: IPRATROPIUM/ALBUTEROL 0.5-3(2.5)MG/3ML NEB NEB PRN (13:52)
[2019-11-01 16:23] LABS: BG BASE EXCESS 0.5 mmol/L (-2.0-2.0); BG CARBOXYHEMOGLOBIN 0.3 % (0.5-1.5); BG DEOXYHEMOGLOBIN 4.7 % (0.0-5.0); BG FRACTION INSPIRED OXYGEN 40; BG HCO3 ACT 23.9 mmol/L (22.0-26.0); BG OXYGEN SATURATION 95.3 % (92.0-98.5); BG PH 7.465 (7.350-7.450); BG PO2 71.5 mmHg (75.0-100.0); BG PRESSURE SUPPORT 10; BG SAMPLE SITE RIGHT RADIAL; BG TOTAL HEMOGLOBIN 10.6 g/dL (12.0-18.0); BG VENT MODE VENT - CPAP
[2019-11-01] MEDS: LEVETIRACETAM 750 MG in SODIUM CHLORIDE 0.9% 100 ML IV SCH (21:19)
[2019-11-01] MEDS: VANCOMYCIN 1250MG in DEXTROSE 5% WATER 250ML IV SCH (23:46)
[2019-11-02] VITALS (46 sets, daily range): BP systolic 126–177; BP diastolic 52–77
[2019-11-02] MEDS: BLOOD SUGAR DIAGNOSTIC STRIP TEST SCH ×4 (05:03→23:35)
[2019-11-02] MEDS: PHENYTOIN SODIUM 100MG/2ML VIAL IV SCH ×3 (05:03→21:00)
[2019-11-02] MEDS: PIPERACILLIN/TAZOBACTAM 3.375 G in DEXT 5% WATER 100 ML IV SCH ×4 (05:03→23:34)
[2019-11-02 05:06] LABS: BASOPHILS % 0.8 % (0.0-2.0); EOSINOPHILS % 4.2 % (0.0-5.0); HEMATOCRIT. 25.6 % (36.0-48.0); HEMOGLOBIN. 8.7 g/dL (12.0-16.0); LYMPHOCYTES % 19.2 % (20.0-50.0); MEAN CORPUSCULAR HEMOGLOBIN 27.1 pg (28.0-32.0); MEAN CORPUSCULAR VOLUME 79.6 fL (81.0-99.0); MEAN PLATELET VOLUME 9.9 fl (7.4-10.4); MONOCYTES % 8.7 % (2.0-8.0); NEUTROPHILS % 67.1 % (40.0-76.0); PLATELET 170 x1000/uL (130-400); RED BLOOD CELL COUNT 3.22 mill/uL (4.2-5.4); RED CELL DISTRIBUTION WIDTH 15.8 % (11.6-14.6)
[2019-11-02] MEDS: INSULIN LISPRO 100 UNITS/ML SUBCUT SCH ×5 (05:48→23:34)
[2019-11-02] MEDS: CARVEDILOL 3.125 MG TABLET PO SCH ×2 (09:00→20:42)
[2019-11-02 09:38] LABS: BG BASE EXCESS 0.6 mmol/L (-2.0-2.0); BG CARBOXYHEMOGLOBIN 0.1 % (0.5-1.5); BG DEOXYHEMOGLOBIN 2.1 % (0.0-5.0); BG FRACTION INSPIRED OXYGEN 40; BG HCO3 ACT 24.5 mmol/L (22.0-26.0); BG OXYGEN SATURATION 97.9 % (92.0-98.5); BG OXYHEMOGLOBIN 97.8 % (94.0-97.0); BG PCO2 36.2 mmHg (35.0-45.0); BG PH 7.448 (7.350-7.450); BG SAMPLE SITE RIGHT RADIAL; BG TIDAL VOLUME(mL) 450 mL; BG VENT MODE VENT - A/C; BG VENT RATE 16 set
[2019-11-02] MEDS: ASPIRIN 81MG TABLET NG SCH (09:42)
[2019-11-02] MEDS: ENOXAPARIN 80MG/0.8ML SYR SUBCUT SCH ×2 (09:42→20:42)
[2019-11-02] MEDS: LEVETIRACETAM 750 MG in SODIUM CHLORIDE 0.9% 100 ML IV SCH ×2 (09:42→20:42)
[2019-11-02] MEDS: FUROSEMIDE 40MG/4ML VIAL IV SCH ×2 (09:42→16:33)
[2019-11-02] MEDS: FAMOTIDINE 20MG/2ML VIAL IV SCH (09:42)
[2019-11-02] MEDS: SODIUM CHLORIDE 0.45% 1,000 ML IV SCH (11:01)
[2019-11-02] MEDS: INSULIN GLARGINE UD 100 UNITS/ML SYR SUBCUT SCH (11:01)
[2019-11-02] MEDS: METRONIDAZOLE 500MG TABLET PO SCH ×2 (13:59→21:00)
[2019-11-02] MEDS: VANCOMYCIN 1250MG in DEXTROSE 5% WATER 250ML IV SCH (18:11)
[2019-11-02] MEDS ORDERED: HYDRALAZINE 20MG/ML VIAL IV NR (18:15)
[2019-11-02] MEDS: HYDRALAZINE 20MG/ML VIAL IV PRN (19:33)
[2019-11-03] VITALS (47 sets, daily range): BP systolic 134–180; BP diastolic 45–88
[2019-11-03] MEDS: SODIUM CHLORIDE 0.45% 1,000 ML IV SCH ×2 (04:20→21:48)
[2019-11-03] MEDS: INSULIN LISPRO 100 UNITS/ML SUBCUT SCH ×3 (06:06→17:25)
[2019-11-03] MEDS: PIPERACILLIN/TAZOBACTAM 3.375 G in DEXT 5% WATER 100 ML IV SCH ×4 (06:13→23:35)
[2019-11-03] MEDS: BLOOD SUGAR DIAGNOSTIC STRIP TEST SCH ×3 (06:14→17:11)
[2019-11-03] MEDS: METRONIDAZOLE 500MG TABLET PO SCH ×3 (06:14→21:47)
[2019-11-03] MEDS: PHENYTOIN SODIUM 100MG/2ML VIAL IV SCH ×3 (06:14→21:47)
[2019-11-03 06:27] LABS: BASOPHILS % 0.7 % (0.0-2.0); EOSINOPHILS % 1.9 % (0.0-5.0); HEMATOCRIT. 27.1 % (36.0-48.0); HEMOGLOBIN. 9.2 g/dL (12.0-16.0); LYMPHOCYTES % 11.4 % (20.0-50.0); MEAN CORPUSCULAR HEMOGLOBIN 26.9 pg (28.0-32.0); MEAN CORPUSCULAR VOLUME 79.3 fL (81.0-99.0); MEAN PLATELET VOLUME 10.1 fl (7.4-10.4); MONOCYTES % 8.6 % (2.0-8.0); NEUTROPHILS % 77.4 % (40.0-76.0); PLATELET 215 x1000/uL (130-400); RED BLOOD CELL COUNT 3.41 mill/uL (4.2-5.4); RED CELL DISTRIBUTION WIDTH 15.7 % (11.6-14.6)
[2019-11-03] MEDS: ENOXAPARIN 80MG/0.8ML SYR SUBCUT SCH (08:13)
[2019-11-03] MEDS: FAMOTIDINE 20MG/2ML VIAL IV SCH (08:13)
[2019-11-03] MEDS: LEVETIRACETAM 750 MG in SODIUM CHLORIDE 0.9% 100 ML IV SCH ×2 (08:13→21:47)
[2019-11-03] MEDS: FUROSEMIDE 40MG/4ML VIAL IV SCH ×2 (08:13→17:24)
[2019-11-03] MEDS: CARVEDILOL 3.125 MG TABLET PO SCH ×2 (08:14→21:48)
[2019-11-03] MEDS: ASPIRIN 81MG TABLET NG SCH (08:14)
[2019-11-03] MEDS ORDERED: POTASSIUM CHLORIDE 20MEQ/PACKET PO SCH (10:00)
[2019-11-03] MEDS: INSULIN GLARGINE UD 100 UNITS/ML SYR SUBCUT SCH (10:01)
[2019-11-03] MEDS: VANCOMYCIN 1250MG in DEXTROSE 5% WATER 250ML IV SCH (11:38)
[2019-11-03] MEDS: ENOXAPARIN 100MG/ML SYR SUBCUT SCH (21:47)
[2019-11-04] VITALS (46 sets, daily range): BP systolic 133–170; BP diastolic 61–123
[2019-11-04] MEDS: BLOOD SUGAR DIAGNOSTIC STRIP TEST SCH ×5 (00:37→23:55)
[2019-11-04] MEDS: INSULIN LISPRO 100 UNITS/ML SUBCUT SCH ×5 (00:39→23:57)
[2019-11-04 04:13] LABS: BASOPHILS % 0.9 % (0.0-2.0); EOSINOPHILS % 2.2 % (0.0-5.0); HEMATOCRIT. 26.6 % (36.0-48.0); HEMOGLOBIN. 9.1 g/dL (12.0-16.0); LYMPHOCYTES % 13.1 % (20.0-50.0); MEAN CORPUSCULAR HEMOGLOBIN 27.2 pg (28.0-32.0); MEAN CORPUSCULAR VOLUME 79.1 fL (81.0-99.0); MEAN PLATELET VOLUME 9.5 fl (7.4-10.4); NEUTROPHILS % 74.8 % (40.0-76.0); PLATELET 232 x1000/uL (130-400); RED BLOOD CELL COUNT 3.36 mill/uL (4.2-5.4); RED CELL DISTRIBUTION WIDTH 15.8 % (11.6-14.6)
[2019-11-04 04:16] LABS: VANCOMYCIN TROUGH 17.4 ug/mL (5.0-10.0)
[2019-11-04] MEDS: PIPERACILLIN/TAZOBACTAM 3.375 G in DEXT 5% WATER 100 ML IV SCH ×3 (05:14→20:39)
[2019-11-04] MEDS: VANCOMYCIN 1250MG in DEXTROSE 5% WATER 250ML IV SCH (05:15)
[2019-11-04] MEDS: PHENYTOIN SODIUM 100MG/2ML VIAL IV SCH ×3 (05:39→21:50)
[2019-11-04] MEDS: METRONIDAZOLE 500MG TABLET PO SCH ×3 (05:40→21:50)
[2019-11-04] MEDS: IPRATROPIUM/ALBUTEROL 0.5-3(2.5)MG/3ML NEB NEB PRN ×2 (08:39→13:42)
[2019-11-04] MEDS: LEVETIRACETAM 750 MG in SODIUM CHLORIDE 0.9% 100 ML IV SCH ×2 (08:55→21:50)
[2019-11-04] MEDS: FUROSEMIDE 40MG/4ML VIAL IV SCH ×2 (08:55→17:56)
[2019-11-04] MEDS: ASPIRIN 81MG TABLET NG SCH (08:55)
[2019-11-04] MEDS: ENOXAPARIN 100MG/ML SYR SUBCUT SCH ×2 (08:56→21:51)
[2019-11-04] MEDS: CARVEDILOL 3.125 MG TABLET PO SCH ×2 (08:56→21:51)
[2019-11-04] MEDS: FAMOTIDINE 20MG/2ML VIAL IV SCH (09:32)
[2019-11-04] MEDS: INSULIN GLARGINE UD 100 UNITS/ML SYR SUBCUT SCH (10:26)
[2019-11-04] MEDS: LOSARTAN POTASSIUM 25 MG TABLET NG SCH (12:52)
[2019-11-04] MEDS: SODIUM CHLORIDE 0.45% 1,000 ML IV SCH (13:18)
[2019-11-05] VITALS (35 sets, daily range): BP systolic 112–179; BP diastolic 50–85
[2019-11-05] MEDS: PHENYTOIN SODIUM 100MG/2ML VIAL IV SCH ×2 (05:37→14:12)
[2019-11-05] MEDS: HYDRALAZINE 20MG/ML VIAL IV PRN (05:38)
[2019-11-05] MEDS: SODIUM CHLORIDE 0.45% 1,000 ML IV SCH (05:38)
[2019-11-05] MEDS: METRONIDAZOLE 500MG TABLET PO SCH ×2 (05:38→14:12)
[2019-11-05] MEDS: INSULIN LISPRO 100 UNITS/ML SUBCUT SCH ×3 (05:38→17:14)
[2019-11-05] MEDS: BLOOD SUGAR DIAGNOSTIC STRIP TEST SCH ×3 (05:39→17:09)
[2019-11-05 05:54] LABS: BASOPHILS % 0.9 % (0.0-2.0); EOSINOPHILS % 3.7 % (0.0-5.0); HEMATOCRIT. 27.6 % (36.0-48.0); HEMOGLOBIN. 9.2 g/dL (12.0-16.0); LYMPHOCYTES % 14.4 % (20.0-50.0); MEAN CORPUSCULAR HEMOGLOBIN 26.7 pg (28.0-32.0); MEAN CORPUSCULAR VOLUME 80.4 fL (81.0-99.0); MEAN PLATELET VOLUME 9.9 fl (7.4-10.4); PLATELET 246 x1000/uL (130-400); RED BLOOD CELL COUNT 3.44 mill/uL (4.2-5.4); RED CELL DISTRIBUTION WIDTH 16.1 % (11.6-14.6)
[2019-11-05] MEDS: FAMOTIDINE 20MG/2ML VIAL IV SCH (08:46)
[2019-11-05] MEDS: FUROSEMIDE 40MG/4ML VIAL IV SCH ×2 (08:46→17:14)
[2019-11-05] MEDS: ASPIRIN 81MG TABLET NG SCH (08:47)
[2019-11-05] MEDS: LOSARTAN POTASSIUM 25 MG TABLET NG SCH (08:47)
[2019-11-05] MEDS: CARVEDILOL 3.125 MG TABLET PO SCH (08:47)
[2019-11-05] MEDS: ENOXAPARIN 100MG/ML SYR SUBCUT SCH (08:54)
[2019-11-05] MEDS: ACETAMINOPHEN 325MG TABLET PO PRN (08:54)
[2019-11-05] MEDS: LEVETIRACETAM 750 MG in SODIUM CHLORIDE 0.9% 100 ML IV SCH (08:55)
[2019-11-05] MEDS: INSULIN GLARGINE UD 100 UNITS/ML SYR SUBCUT SCH (09:45)
[2019-11-05 10:20] LABS: BG BASE EXCESS -0.2 mmol/L (-2.0-2.0); BG CARBOXYHEMOGLOBIN 0.3 % (0.5-1.5); BG DEOXYHEMOGLOBIN 1.3 % (0.0-5.0); BG FRACTION INSPIRED OXYGEN 40; BG HCO3 ACT 23.2 mmol/L (22.0-26.0); BG METHEMOGLOBIN 0.3 % (0.0-1.5); BG OXYGEN SATURATION 98.7 % (92.0-98.5); BG OXYHEMOGLOBIN 98.1 % (94.0-97.0); BG PCO2 33.1 mmHg (35.0-45.0); BG PH 7.463 (7.350-7.450); BG PO2 131.6 mmHg (75.0-100.0); BG SAMPLE SITE RIGHT RADIAL; BG TIDAL VOLUME(mL) 450 mL; BG TOTAL HEMOGLOBIN 9.8 g/dL (12.0-18.0); BG VENT MODE VENT - A/C; BG VENT RATE 16 set
[2019-11-05] MEDS: IPRATROPIUM/ALBUTEROL 0.5-3(2.5)MG/3ML NEB NEB PRN ×2 (13:42→16:09)
[2019-11-05] MEDS ORDERED: FUROSEMIDE 40MG/4ML VIAL IVP ONE (13:45)
== END 2019-11-05 20:01 | DRG 870 ==
LOC: ER 03:09 → CVICU 05:23 → EDBEDREQ 10-29 04:59 → UNDOADMIN 10-29 05:23 → CVICU 10-29 05:23 → EDBEDREQ 10-29 12:02 → ENRESERV 10-29 23:35 → UNDODISIN 11-05 20:01
PROVIDERS: ADMIT Internal Medicine; ATTEND Internal Medicine
PROC: 5A1955Z Respiratory Ventilation, Greater than 96 Consecutive Hours (ICD-10-PCS; principal; 2019-10-28)
PROC: 0BH17EZ Insertion of Endotracheal Airway into Trachea, Via Natural or Artificial Opening (ICD-10-PCS; 2019-10-28)
PROC: 5A12012 Performance of Cardiac Output, Single, Manual (ICD-10-PCS; 2019-10-28)
PROC: 05H533Z Insertion of Infusion Device into Right Subclavian Vein, Percutaneous Approach (ICD-10-PCS; 2019-10-28)
PROC: B546ZZA Ultrasonography of Right Subclavian Vein, Guidance (ICD-10-PCS; 2019-10-28)
DX: A41.9 Sepsis, unspecified organism (principal); J96.01 Acute respiratory failure with hypoxia; I21.4 Non-ST elevation (NSTEMI) myocardial infarction; I46.9 Cardiac arrest, cause unspecified; I50.21 Acute systolic (congestive) heart failure; J18.9 Pneumonia, unspecified organism; D68.59 Other primary thrombophilia; E87.4 Mixed disorder of acid-base balance; G93.1 Anoxic brain damage, not elsewhere classified; R56.9 Unspecified convulsions; E11.9 Type 2 diabetes mellitus without complications; E66.01 Morbid (severe) obesity due to excess calories; I27.20 Pulmonary hypertension, unspecified; I11.0 Hypertensive heart disease with heart failure; D64.9 Anemia, unspecified; J45.909 Unspecified asthma, uncomplicated; I48.0 Paroxysmal atrial fibrillation; R74.0 Nonspecific elevation of levels of transaminase and lactic acid dehydrogenase [LDH]; E78.5 Hyperlipidemia, unspecified; I25.10 Atherosclerotic heart disease of native coronary artery without angina pectoris; Z20.828 Contact with and (suspected) exposure to other viral communicable diseases; Z79.82 Long term (current) use of aspirin; Z79.4 Long term (current) use of insulin; Z79.899 Other long term (current) drug therapy; Z79.84 Long term (current) use of oral hypoglycemic drugs; Z78.1 Physical restraint status; Z68.38 Body mass index [BMI] 38.0-38.9, adult
CPT/HCPCS: 31500; 36415; 36556; 36600; 70551; 71045; 76937; 78580; 80048; 80053; 80185; 80202; 80305; 82140; 82375; 82550; 82553; 82805; 82962; 83605; 83735; 83880; 84145; 84484; 85025; 85379; 86850; 86900; 87070; 92950; 93005; 93880; 93970; 94003; 94640; 99291; C1725; J0360; J1165; J1200; J1650; J1815; J1940; J1953; J2060; J2250; J2543; J2704; J3370; J3480; J3490; J7030; J7050; J7060; U0003-CS